=== PATIENT | female | born 1990 | race Hispanic/Latino ===

== ENCOUNTER 2021-05-23 21:45 | Emergency (ER) | payer MEDICAID ==
[~2021-05-23] VITALS: Ht 162.6 cm; Wt 106.1 kg
[2021-05-23] MEDS ORDERED: CYCL-309 PO (23:10)
[2021-05-23] MEDS ORDERED: MELO7.5T12 PO (23:10)
[2021-05-23] MEDS ORDERED: ORPHENADRINE CITRATE 30 MG/ML ML ONE (23:23)
[2021-05-23] MEDS ORDERED: KETOROLAC 60 MG VIAL (30MG/ML) ONE (23:23)
[2021-05-23] MEDS ORDERED: ONDANSETRON ODT 4MG TAB ONE (23:24)
[2021-05-23] MEDS ORDERED: ORPHENADRINE CITRATE 30 MG/ML ML IM ONE (23:30)
[2021-05-23] MEDS ORDERED: ONDANSETRON ODT 4MG TAB SL ONE (23:30)
[2021-05-23] MEDS ORDERED: KETOROLAC 60 MG VIAL (30MG/ML) IM ONE (23:30)
[2021-05-23 23:52] VITALS: BP 127/73
== END 2021-05-24 | disposition home or self-care (01) ==
LOC: EDH 21:45
DX: R51.9 Headache, unspecified (principal); M62.830 Muscle spasm of back; F41.9 Anxiety disorder, unspecified; F32.A Depression, unspecified; Z98.51 Tubal ligation status; Z79.1 Long term (current) use of non-steroidal anti-inflammatories (NSAID); Z79.899 Other long term (current) drug therapy
CPT/HCPCS: 96372 ×2; 99284; J1885; J2360